=== PATIENT | female | born 1990 | race African-American/Black ===

== ENCOUNTER 2017-03-28 10:04 | Emergency (ER) | payer OTHER ==
[~2017-03-28 10:04] MED LIST: MACR100C PO; PREN0.01 PO
[2017-03-28 10:08] VITALS: BP 127/66; PULSE 71; RESP 22; TEMP 98.6; O2SAT 99
[2017-03-28] MEDS ORDERED: IBUP800T23 PO (10:32)
[2017-03-28] MEDS ORDERED: BACL10TA PO (10:32)
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
== END 2017-03-28 10:53 | disposition home or self-care (01) ==
LOC: NEPK 10:04
DX: S46.911A Strain of unspecified muscle, fascia and tendon at shoulder and upper arm level, right arm, initial encounter (principal); S39.012A Strain of muscle, fascia and tendon of lower back, initial encounter; V49.49XA Driver injured in collision with other motor vehicles in traffic accident, initial encounter; Y92.410 Unspecified street and highway as the place of occurrence of the external cause
CPT/HCPCS: 99283

== ENCOUNTER 2018-03-29 18:15 | Emergency (ER) | payer OTHER ==
[~2018-03-29] VITALS: Ht 157.5 cm; Wt 120.0 kg
[~2018-03-29 18:15] MED LIST changes: +BACL10TA PO; +IBUP1TAB7 PO; -MACR100C PO; -PREN0.01 PO
[2018-03-29 18:18] VITALS: BP 135/77; PULSE 77; RESP 16; TEMP 98.4; O2SAT 100
== END 2018-03-29 19:00 | disposition left against medical advice (07) ==
LOC: NETRI 18:15
DX: Z03.89 Encounter for observation for other suspected diseases and conditions ruled out (principal)
CPT/HCPCS: 99281